=== PATIENT | male | born 1965 | race African-American/Black ===

== ENCOUNTER 2022-01-08 17:29 | Emergency (ER) | payer OTHER ==
[~2022-01-08 17:29] MED LIST: KEPPRA500 MG PO; MEDROL 4MG DOSEP4 MG PO; VENTOLIN HFA IN18 GM INH
[2022-01-08 18:05] LABS: BASOPHIL 0.5 % (0-2); EOSINOPHIL 2.2 % (0-5); HCT 45.5 % (42.0-52.0); HGB 14.8 g/dl (13.2-18.0); LYMPHOCYTE 35.2 % (15-48); MCH 27.8 pg (25.0-31.0); MCHC 32.5 g/dL (32.0-36.0); MCV 85.4 fL (78.0-100.0); MONOCYTE 8.1 % (0-12); MPV 10.5 fL (6.0-9.5); NEUTROPHIL 53.7 % (41-80); NRBC 0; PLT 201 K/uL (150-400); RBC 5.33 M/uL (4.70-6.00); RDW 16.1 % (11.5-14.0); WBC 8.6 K/uL (4.0-10.5)
[2022-01-08 18:47] LABS: INR 1.08 (0.9-1.2); PROTHROMBIN TIME 13.7 SECONDS (11.9-13.9); PTT 25.3 SECONDS (24.9-34.6)
[2022-01-08 19:07] LABS: ALBUMIN 3.8 g/dL (3.4-5.0); BILIRUBIN - TOTAL 0.5 mg/dL (0.2-1.0); BUN/CREAT RATIO (CALC) 11.1 RATIO; CREATININE 0.99 mg/dL (0.67-1.17); GLOBULIN (CALCULATION) 4.7 g/dL; POTASSIUM 3.6 mmol/L (3.5-5.1); TOTAL PROTEIN 8.5 g/dL (6.4-8.2)
[2022-01-08 20:53] LABS: BILIRUBIN NEGATIVE (NEGATIVE); BLOOD TRACE-INTACT Ery/uL (NEGATIVE); CLARITY CLEAR (CLEAR); COLOR YELLOW (YELLOW); GLUCOSE (U) NORMAL (NORMAL); LEUKOCYTES NEGATIVE Leu/uL (NEGATIVE); NITRITE NEGATIVE (NEGATIVE); PROTEIN 2+ mg/dL (NEGATIVE); SPECIFIC GRAVITY >=1.030 (1.001-1.030); UROBILINOGEN 0.2 mg/dL (0.2-1.0)
[2022-01-08 21:21] LABS: ECSTASY (MDMA) NEGATIVE (NEGATIVE); MARIJUANA (THC) NEGATIVE (NEGATIVE)
[2022-01-08 21:22] LABS: AMPHETAMINES NEGATIVE (NEGATIVE); BARBITURATES NEGATIVE (NEGATIVE); METHADONE NEGATIVE (NEGATIVE); OPIATES NEGATIVE (NEGATIVE); OXYCODONE NEGATIVE (NEGATIVE)
[2022-01-08 21:27] LABS: URINARY RBC RARE
[2022-01-08 21:28] LABS: SPERM PRESENT; SQUAMOUS EPITHELIAL CELLS RARE
== END 2022-01-09 02:40 ==
LOC: FER 17:29
PROVIDERS: Internal Medicine
DX: K72.90 Hepatic failure, unspecified without coma (principal); R56.9 Unspecified convulsions; I48.91 Unspecified atrial fibrillation; S80.812A Abrasion, left lower leg, initial encounter; S80.811A Abrasion, right lower leg, initial encounter; Z28.311 Partially vaccinated for COVID-19; F17.210 Nicotine dependence, cigarettes, uncomplicated; X58.XXXA Exposure to other specified factors, initial encounter; Y92.410 Unspecified street and highway as the place of occurrence of the external cause
CPT/HCPCS: 36415; 70450; 71250; 80053; 80305; 81001; 82140; 83605; 84145; 84484; 85025; 85610; 85730; 93005; G0480; J1953; J2060; J3411; J3475; J7030